=== PATIENT | female | born 1980 | race Caucasian/White ===

== ENCOUNTER 2017-10-01 08:29 | Emergency (ER) | payer MEDICAID ==
[~2017-10-01 08:29] MED LIST: CEPH500C3 PO; CLIN150 PO; PRED20 PO; TRIA.1%T TOP
[2017-10-01 08:32] VITALS: BP 147/89; PULSE 87; RESP 18; TEMP 98.3; O2SAT 99
[2017-10-01] MEDS ORDERED: BIRTH CONTROL PILL (08:51)
--- NOTE | 2017-10-01 08:58 | PD ---
HPI Chief Complaint: Dizziness Time Seen by Provider: 08:49 Travel History International Travel<30 days: No Contact w/Intl Traveler<30days: No Traveled to known affect area: No History of Present Illness HPI 37yo F with PMH of HTN presents to the ED with c/o room spinning since this morning. Said it is worst with head movement and associated with nausea. Also have bilateral ear fullness. Recent bronchitis a few weeks ago. Denies any fever, chest pain, sob, vomiting, abdominal pain, focal weakness or numbness. PFSH Past Medical History Diabetes: No Diminished Hearing: No Hypertension: Yes (NO MED) Influenza Vaccination: No ?: Not LMP: LAST WEEK : 4 Para: 1 Miscarriage: 2 : 0 Past Surgical History Oral Surgery: Yes (WISDOM TEETH) Other Surgery: Yes (WISDOM TEETH 2002) Social History Alcohol Use: Yes (RARELY) Tobacco Use: No Substance Use: No Allergies-Medications (Allergen,Severity, Reaction): Coded Allergies: prochlorperazine (Unverified Adverse Reaction, Severe, VOMITING/SHAKES, ) promethazine (Unverified Adverse Reaction, Severe, VOMITING/SHAKES, ) Reported Meds & Prescriptions Reported Meds & Active Scripts Active Reported [ Control Pill] Review of Systems Except as stated in HPI: all other systems reviewed are Neg Physical Exam Narrative GENERAL: 37yo F in mild distress. SKIN: Focused skin assessment warm/dry. HEAD: Atraumatic. Normocephalic. EYES: Pupils equal and round at 3mm bilaterally. EOMI. No nystagmus. ENT: TM wnl bilaterally. Throat: Clear, uvula midline. NECK: Trachea midline. No JVD. CARDIOVASCULAR: Regular rate and rhythm. No murmur appreciated. RESPIRATORY: No accessory muscle use. Clear to auscultation. Breath sounds equal bilaterally. GASTROINTESTINAL: Abdomen soft, non-tender, nondistended. MUSCULOSKELETAL: No obvious deformities. No clubbing. No cyanosis. No edema. NEUROLOGICAL: Awake and alert. No obvious cranial nerve deficits. Motor grossly within normal limits. Normal speech. PSYCHIATRIC: Appropriate mood and affect; insight and judgment normal. Data Data Last Documented VS Vital Signs Date Time Temp Pulse Resp B/P (MAP) Pulse Ox O2 Delivery O2 Flow Rate FiO2 10/01/17 10:38 61 164/73 (103) 98 1/27/18 08:32 98.3 18 Room Air Orders Orders Electrocardiogram (10/01/17 ) Blood Glucose (10/01/17 08:54) Meclizine (Antivert) (10/01/17 09:00) Ondansetron Odt (Zofran Odt) (10/01/17 09:00) Ed Discharge Order (10/01/17 11:08) [facility] Medical Decision Making Medical Screen Exam Complete: Yes Emergency Medical Condition: Yes Interpretation(s) EKG: NSR 77bpm. No ST segment elevation or depression. QTc 378ms. Differential Diagnosis Peripheral vertigo vs. hypoglycemia vs. labyrinthitis Narrative Course 37yo F with symptoms consistent with peripheral vertigo. Blood glucose is 95. Pt given meclizine and zofran and reevaluated at bedside. Said the spinning has improved a lot and she is no longer nauseous. Pt feels better and wants to go home. Return precautions given. Diagnosis Primary Impression: Vertigo Referrals: Amarjit Mnedez MD as needed Patient Instructions: General Instructions Departure Forms: Tests/Procedures Additional Instructions: Please follow up with your primary care physician in 2-3 days. Return to the ED if symptoms worsen. Med/Other Pt SpecificInfo: Prescription(s) given Scripts Meclizine (Meclizine) 25 Mg Tab 25 MG PO TID Y for VERTIGO, #7 TAB 0 Refills Prov: Nimo Aguillon 10/01/17 Disposition: 01 DISCHARGE HOME Condition: Stable PalNimo DO Oct 01, 2017 08:58
[2017-10-01] MEDS ORDERED: MECLIZINE HCL 25 MG TAB PO ONE (09:00)
[2017-10-01] MEDS ORDERED: ONDANSETRON ODT 4 MG TAB PO ONE (09:00)
[2017-10-01 10:38] VITALS: BP 164/73; PULSE 61; O2SAT 98
[2017-10-01] MEDS ORDERED: MECL-62 PO (11:10)
--- NOTE | 2017-10-02 12:23 | EKG ---
Date Performed: 10/01/2017 Time Performed: 08:59:07 PTAGE: 37 years EKG: Sinus rhythm WITH SINUS ARRHYTHMIA NONSPECIFIC ST-T CHANGES HAVE IMPROVED NORMAL ECG PREVIOUS TRACING : 07/02/2009 17.11 DOCTOR: Dmitry Rothman Interpretating Date/Time 10/02/2017 12:20:51
== END 2017-10-01 11:18 | disposition home or self-care (01) ==
LOC: PHED 08:29
DX: R42 Dizziness and giddiness (principal); I10 Essential (primary) hypertension; Z79.3 Long term (current) use of hormonal contraceptives
CPT/HCPCS: 93005; 99283